=== PATIENT | female | born 1990 ===

== ENCOUNTER 2019-03-04 11:05 | Emergency (ER) | payer SELFPAY ==
[2019-03-04 11:28] VITALS: BP 114/70
--- NOTE | 2019-03-04 13:26 | Emergency Department Report ---
Chief Complaint: Upper Respiratory Infection Stated Complaint: FLU LIKE SYMPTOMS Time Seen by Provider: 03/04/19 13:14 - HPI History of Present Illness: pt is a 28-year-old female presents emergency room with complaints of URI symptoms that began 5 days ago. she has associated generalized body aches, chills, headache, cough. She denies any fever, rhinorrhea, congestion, sore throat, ear pain. She states that she has been taking daytime cough medication [id number]. She denies any past medical history or allergies medications. vitals are normal afebrile, no tachycardia, normal oxygen saturation on exam: non toxic appearing, no acute distress normal oropharynx normal TMs and canals bilaterally turbinates are pale and boggy normal breath sounds bilaterally, no w/r/r normal heart sounds, no gallops, murmurs, rubs symptoms and examination consistent with viral URI Supportive care and symptomatic treatment discussed with patient advised patient to please follow-up with a primary care physician. pt is presenting with non-medical emergency at this time medical examination performed there is no threat to life or limb at this time - Exam Vital Signs: Vital Signs 03/04/19 11:25 Temperature 98.3 F Pulse Rate 59 L Respiratory 20 Rate Blood Pressure 114/70 O2 Sat by Pulse 100 Oximetry MSE screening note: Focused history and physical exam performed. ED Disposition for MSE Clinical Impression: Viral URI Disposition: MED SCREENING EXAM-LEFT Is pt being admited?: No Does the pt Need Aspirin: No Condition: Stable Instructions: Viral Syndrome (ED) Additional Instructions: May take Robitussin [id number] for cough. Please also use Flonase and Zyrtec [id number]. Increase your water intake over the next several days. May use a humidifier. May take Tylenol or ibuprofen for any discomfort. May do warm saltwater gargles, drink warm tea, eat warm soup. Follow-up with a primary care doctor in the next 2-3 days for reexamination. Return to the emergency room for any new or worsening symptoms. Referrals: AFRICA LOVE MD [Staff Physician] - 2-3 Days [facility] [Outside] - 2-3 Days Time of Disposition: 13:24 Print Language: PORTUGUESE
== END 2019-03-04 14:56 | disposition left against medical advice (07) ==
LOC: ED 11:05
DX: J06.9 Acute upper respiratory infection, unspecified (principal)
CPT/HCPCS: 99281

== ENCOUNTER 2020-10-01 06:32 | Emergency (ER) | payer SELFPAY ==
--- NOTE | 2020-10-01 08:55 | XRay Report ---
CHEST 2 VIEWS INDICATION / CLINICAL INFORMATION: Heart palpitations at night. COMPARISON: None available. FINDINGS: SUPPORT DEVICES: None. HEART / MEDIASTINUM: The heart size and pulmonary vasculature are normal. LUNGS / PLEURA: Mildly decreased lung volumes. No acute pulmonary or pleural abnormality. No pneumoth orax. ADDITIONAL FINDINGS: No significant additional findings. IMPRESSION: Low lung volumes without acute abnormality. Signer Name: Mikhail Madera MD Signed: 10/01/2020 8:51 AM Workstation Name: [id number]
[2020-10-01 11:22] LABS: Basophils % (Auto) 0.4 % (0.0-1.8); Eosinophils # (Auto) 0.2 K/mm3 (0.0-0.4); Eosinophils % (Auto) 2.2 % (0.0-4.3); Hemoglobin 9.6 gm/dl (10.1-14.3); Lymphocytes # (Auto) 1.8 K/mm3 (1.2-5.4); Lymphocytes % (Auto) 17.7 % (13.4-35.0); Monocytes # (Auto) 0.6 K/mm3 (0.0-0.8); Monocytes % (Auto) 6.1 % (0.0-7.3)
[2020-10-01 11:43] LABS: Alanine Aminotransferase 25 units/L (7-56); Albumin 3.1 g/dL (3.9-5); Blood Urea Nitrogen 5 mg/dL (7-17); Calcium 8.6 mg/dL (8.4-10.2); Hemolysis Index 0
[2020-10-01 11:46] LABS: BUN/Creatinine Ratio 7
[2020-10-01 11:51] LABS: Hematocrit 29.3 % (30.3-42.9); Mean Corpuscular HGB Conc 33 % (30-34); Mean Corpuscular Volume 80 fl (79-97); Platelet Count 500 K/mm3 (140-440); Red Blood Count 3.68 M/mm3 (3.65-5.03); Red Cell Distribution Width 13.9 % (13.2-15.2)
--- NOTE | 2020-10-01 12:03 | Emergency Department Report ---
ED Chest Pain HPI - General Chief Complaint: Chest Pain Stated Complaint: CHEST PAIN PUI?: No Time Seen by Provider: 10/01/20 10:35 Source: patient Mode of arrival: Wheelchair Limitations: No Limitations - History of Present Illness Initial Comments: 29 YO AA COMES TO ER WITH CP AND SOB P HAVING LIPO SUCTION WITH DR LAURA. SHE REPORTS THEY TOOK 4L OF FAT OFF HER TORSO AREA. WORSE AT NIGHT. SHARP IN NATURE. DENIES PRIOR MED HX. AMBULATORY TO ER AND IN NAD ON ARRIVAL TO [facility] MD Complaint: chest pain -: Gradual, days(s) Aspirin use within the Past 7 Days: (0) No - Related Data Previous Rx's Medication Instructions Recorded Last Taken Type Sulfamethoxazole/Trimethoprim 1 each PO BID #10 tablet 10/01/20 Unknown Rx [Bactrim DS TAB] Allergies Allergy/AdvReac Type Severity Reaction Status Date / Time No Known Allergies Allergy Verified 10/01/20 07:45 Heart Score - HEART Score History: Slightly suspicious EKG: Non-specific Age: < 45 Risk factors: 1-2 risk factors Troponin: < normal limit HEART Score: 2 - EKG Read Time Time EKG Completed: 13:30 EKG Read Time: 13:30 - Critical Actions Critical Actions: 0-3 pts:0.9-1.7%risk of adverse cardiac event.Candidate for discharge ED Review of Systems ROS: Stated complaint: CHEST PAIN Other details as noted in HPI Comment: All other systems reviewed and negative ED Past Medical Hx - Past Medical History Previous Medical History?: Yes Additional medical history: OBESE - Surgical History Past Surgical History?: Yes Additional Surgical History: COSMETIC SURGERY ON ARMS; LIPO - Family History Family history: no significant - Social History Smoking Status: Never Smoker Substance Use Type: Marijuana - Medications Home Medications: Home Medications Medication Instructions Recorded Confirmed Last Taken Type Sulfamethoxazole/Trimethoprim 1 each PO BID #10 tablet 10/01/20 Unknown Rx [Bactrim DS TAB] ED Physical Exam - General Limitations: No Limitations General appearance: alert, in no apparent distress - Head Head exam: Present: atraumatic, normocephalic - Eye Eye exam: Present: normal appearance - ENT ENT exam: Present: mucous membranes moist - Neck Neck exam: Present: normal inspection - Respiratory Respiratory exam: Present: normal lung sounds bilaterally. Absent: respiratory distress - Cardiovascular Cardiovascular Exam: Present: regular rate, normal rhythm. Absent: systolic murmur, diastolic murmur, rubs, gallop - GI/Abdominal GI/Abdominal exam: Present: soft, normal bowel sounds - Extremities Exam Extremities exam: Present: normal inspection - Back Exam Back exam: Present: normal inspection - Neurological Exam Neurological exam: Present: alert, oriented X3 - Psychiatric Psychiatric exam: Present: normal affect, normal mood - Skin Skin exam: Present: warm, dry, intact, normal color. Absent: rash ED Course Vital Signs 10/01/20 07:48 Temperature 98.3 F Pulse Rate 73 Respiratory 18 Rate Blood Pressure 146/98 O2 Sat by Pulse 99 Oximetry KERVIN score - Kervin Score Age > 65: (0) No Aspirin use within the Past 7 Days: (0) No 3 or more CAD Risk Factors: (1) Yes 2 or more Angina events in past 24 hrs: (0) No Known CAD with more than 50% Stenosis: (0) No Elevated Cardiac Markers: (0) No ST Deviation Greater than 0.5mm: (0) No KERVIN Score: 1 ED Medical Decision Making - Lab Data Result diagrams: 10/01/20 11:17 10/01/20 11:17 - EKG Data -: EKG Interpreted by Ny EKG shows normal: sinus rhythm Rate: normal - EKG Data Interpretation: nonspecific ST-T wave cinda - Radiology Data Radiology results: report reviewed, image reviewed SEE REPORT - Medical Decision Making Labs 10/01/20 10/01/20 10/01/20 11:17 11:17 11:17 WBC 10.1 RBC 3.68 Hgb 9.6 L Hct 29.3 L MCV 80 MCH 27 L MCHC 33 RDW 13.9 Plt Count 500 H Lymph % (Auto) 17.7 [place] % (Auto) 6.1 Eos % (Auto) 2.2 Baso % (Auto) 0.4 Lymph # (Auto) 1.8 [place] # (Auto) 0.6 Eos # (Auto) 0.2 Baso # (Auto) 0.0 Seg Neutrophils % 73.6 H Seg Neutrophils # 7.4 Sodium 137 Potassium 4.0 Chloride 100.8 Carbon Dioxide 31 H Anion Gap 9 BUN 5 L Creatinine 0.7 Estimated GFR > 60 BUN/Creatinine Ratio 7 Glucose 113 H Calcium 8.6 Total Bilirubin 0.50 AST 30 ALT 25 Alkaline Phosphatase 92 Troponin T < 0.010 NT-Pro-B Natriuret Pep Total Protein 6.2 L Albumin 3.1 L Albumin/Globulin Ratio 1.0 HCG, Qual Negative Urine Color Urine Turbidity Urine pH Ur Specific [place] Urine Protein Urine Glucose (UA) Urine Ketones Urine Blood Urine Nitrite Urine Bilirubin Urine Urobilinogen Ur Leukocyte Esterase Urine WBC (Auto) Urine RBC (Auto) U Epithel Cells (Auto) Urine Mucus 10/01/20 10/01/20 11:17 12:30 WBC RBC Hgb Hct MCV MCH MCHC RDW Plt Count Lymph % (Auto) [place] % (Auto) Eos % (Auto) Baso % (Auto) Lymph # (Auto) [place] # (Auto) Eos # (Auto) Baso # (Auto) Seg Neutrophils % Seg Neutrophils # Sodium Potassium Chloride Carbon Dioxide Anion Gap BUN Creatinine Estimated GFR BUN/Creatinine Ratio Glucose Calcium Total Bilirubin AST ALT Alkaline Phosphatase Troponin T NT-Pro-B Natriuret Pep 43.93 Total Protein Albumin Albumin/Globulin Ratio HCG, Qual Urine Color [place] Urine Turbidity Slightly-cloudy Urine pH 6.0 Ur Specific [place] 1.019 Urine Protein 100 mg/dl Urine Glucose (UA) Neg Urine Ketones Neg Urine Blood Lg Urine Nitrite Neg Urine Bilirubin Neg Urine Urobilinogen 4.0 Ur Leukocyte Esterase Lg Urine WBC (Auto) 104.0 H Urine RBC (Auto) 36.0 U Epithel Cells (Auto) 5.0 Urine Mucus Few LABS NOTED UA NOTED ROCEPHIN IV X 1 NO DYSURIA OR DISCHARGE PREG NEG NO FEVER OR CHILLS NO BACK PAIN XRAY CHEST NOTED CT NOTED STAFFED WITH DR ROBLEDO PT HAS NO CARDIAC HISTORY- I'VE DISCUSSED WITH HER THE FINDINGS OF ALL OF HER TESTS. SHE WILL FOLLOW UP WITH CARDIOLOGY. BACTRIM FOR UTI. PT WILL SEE PCP P SHE FINISHES MEDS TO BE SURE THE UTI HAS GONE AWAY. DC HOME WITH DETAILED DC PLAN OF CARE- GIVEN IN WRITING TO PT- SHE VERBALIZES UNDERSTANDING OF PLAN OF CARE. SHE WAS ALSO GIVEN A COPY OF HER CT AND XRAY ON DISC TO TAKE TO THE FOLLOW UPS WITH HER. Vital Signs 10/01/20 07:48 Temperature 98.3 F Pulse Rate 73 Respiratory 18 Rate Blood Pressure 146/98 O2 Sat by Pulse 99 Oximetry - Differential Diagnosis RO PE/FAT EMBOLI Critical care attestation.: If time is entered above; I have spent that time in minutes in the direct care of this critically ill patient, excluding procedure time. ED Disposition Clinical Impression: SOB (shortness of breath), UTI (urinary tract infection) Disposition: - TO HOME OR SELFCARE Is pt being admited?: No Does the pt Need Aspirin: No Condition: Stable Instructions: Shortness of Breath, Adult, [id number] Additional Instructions: FOLLOW UP WITH DR LAURA REGARDING ER VISIT TODAY FOLLOW UP WITH HEART DOCTOR REFERRAL BELOW JUDY ALSO GIVEN YOU A PCP TO FOLLOW UP FOR ONGOING MONITORING OF YOUR HEALTH STAY HYDRATED; AVOID FAT AND SALT IN DIET MED ORDERED TODAY FOR UTI FOLLOW UP WITH PCP AFTER YOU FINISH IT TO BE SURE IT GOES AWAY Referrals: AFRICA LOVE MD [Staff Physician] - 3-5 Days KIMBERLY STEWART MD [Staff Physician] - 3-5 Days Time of Disposition: 13:49
--- NOTE | 2020-10-01 12:38 | Electrocardiograph Report ---
[facility] Test Date: 2020-10-01 Test Time: 07:59:15 Pat Name: MINE LEDESMA Department: Room: Gender: F Telephonic Case Manager: LE : 1990 Requested By: ED DOC Order Number: [id number] Reading MD: Emmanuel Shane Measurements Intervals [place] Rate: 64 P: 1 IN: 187 QRS: 14 QRSD: 70 T: -22 QT: 421 QTc: 436 Interpretive Statements Sinus rhythm Nonspecific inferolateral T wave abnormality No previous ECG available for comparison Electronically Signed On 10-01-2020 12:38:06 EDT by Emmanuel Shane
[2020-10-01 12:59] LABS: Bilirubin,Urine NEG (Negative); Blood,Urine LG (Negative); Color,Urine Amber (Yellow); Mucus,Urine FEW /HPF
--- NOTE | 2020-10-01 13:24 | Cat Scan Report ---
CTA CHEST WITH IV CONTRAST INDICATION: Shortness of breath, chest pain. Possible PE. TECHNIQUE: Axial CT images were obtained through the chest after injection of 100 cc Omnipaque 350 IV contrast. 3 plane MIP reconstructions were produced. All CT scans at this location are performed using CT dose reduction for ALARA by means of automated exposure control. COMPARISON: 2 views of the chest performed today FINDINGS: PULMONARY ARTERIES: No pulmonary emboli. AORTA AND ARTERIES: No significant abnormality. HEART: Mildly/moderately enlarged. No pericardial effusion. MEDIASTINUM: No significant abnormality. LUNGS: Groundglass opacities are noted bilaterally with an upper lobe predominance. No suspicious nod ule or mass. No pneumothorax or pleural effusion. ADDITIONAL FINDINGS: There is generalized infiltration of the subcutaneous tissues along the lower ch est and abdomen. UPPER ABDOMEN: No acute findings. BONES: No significant osseous abnormality. IMPRESSION: 1. No CT evidence for pulmonary embolism. 2. Cardiomegaly with bilateral pulmonary edema versus pneumonia. Continued radiographic follow-up to resolution is recommended. Signer Name: Phillip Zarate MD Signed: 10/01/2020 1:19 PM Workstation Name: [id number]
[2020-10-01] MEDS ORDERED: cefTRIAXone/NS 1 GM/50 ML 1 GM/50 ML BAG IV ONE (13:29)
[2020-10-01 14:22] VITALS: BP 140/90
== END 2020-10-01 14:20 | disposition home or self-care (01) ==
LOC: ED 06:32
DX: R06.02 Shortness of breath (principal); N39.0 Urinary tract infection, site not specified; Z98.890 Other specified postprocedural states
CPT/HCPCS: 36415; 71046; 71275; 80053; 81001; 83880; 84484; 84703; 85025; 87086; 93005; 96365; 99284; J0696; Q9967